=== PATIENT | female | born 1955 | race Caucasian/White ===

== ENCOUNTER 2024-02-28 16:52 | Emergency (ER) | payer OTHER ==
[~2024-02-28] VITALS: Ht 157.5 cm; Wt 96.3 kg
[2024-02-28 18:31] VITALS: BP 198/77; PULSE 88; RESP 16; TEMP 97.9; O2SAT 96
[2024-02-28] MEDS ORDERED: IBUP-1455 PO (19:09)
[2024-02-28] MEDS: KETOROLAC TROMETH 30 MG/ML 1ML VIAL IM ONE (19:15)
[2024-02-28] MEDS: DexAMETHasone SOD PHOS 10MG/1ML VIAL INJ IM ONE (19:16)
== END 2024-02-28 19:26 | disposition home or self-care (01) ==
LOC: ER 16:52
DX: M10.072 Idiopathic gout, left ankle and foot (principal); I10 Essential (primary) hypertension; E11.9 Type 2 diabetes mellitus without complications
CPT/HCPCS: 96372; 99284; J1100; J1885